=== PATIENT | female | born 1990 | race Caucasian/White ===

== ENCOUNTER 2017-09-24 21:11 | Emergency (ER) | payer SELFPAY ==
[~2017-09-24] VITALS: Ht 154.9 cm; Wt 54.0 kg
[2017-09-24 21:15] VITALS: Ht 154.9 cm; Wt 54.0 kg
[2017-09-24 23:35] VITALS: BP 120/67
== END 2017-09-24 23:35 | disposition home or self-care (01) ==
LOC: ED 21:11
DX: T78.1XXA Other adverse food reactions, not elsewhere classified, initial encounter (principal); X58.XXXA Exposure to other specified factors, initial encounter; Z91.018 Allergy to other foods
CPT/HCPCS: J0171; J1200; J2930; J3490; Q0162